=== PATIENT | male | born 1955 | race Caucasian/White ===

== ENCOUNTER → 2022-11-05 | Outpatient (CLI) | payer BC ==
--- NOTE | 2022-11-09 07:39 | MR ---
EXAMINATION TYPE: MR brain wo con DATE OF EXAM: 11/05/2022 COMPARISON: None HISTORY: Optic atrophy, visual defect hemianopsia CONTRAST: Performed utilizing 0 mL intravenous Gadavist gadolinium contrast. TECHNIQUE: Multiplanar, multiecho imaging on a 3.0 Leslie magnet is performed through the brain. Stud y is performed within 24 hours of arrival to the hospital. The craniovertebral junction is normal. The pituitary is normal. Diffusion-weighted imaging is performed. No abnormal hyperintensity is present to suggest an acute i ntracranial infarct or acute ischemic change. There are scattered punctate areas of hyperintensity on T2 and Inversion Recovery weighted sequences which are non-specific but can be related to microvascular ischemic changes. Differential diagnosis s hould include multiple sclerosis, Lyme disease, vasculitis. Ventricles and sulci are appropriate for the patient age. Suspicious fluid adjacent to the optic nerv es is not evident during the brain portion of the study. Fluid is more evident on the dedicated optic MRI. Please see the report same date Minimal maxillary sinus mucosal thickening is present. Some ethmoid air cell mucosal thickening is pr esent. IMPRESSION: 1. Scattered periventricular white matter changes, likely on the basis of chronic white matter ischem ic change. 2. Some increased fluid may be adjacent to the optic nerves on the MRI orbits exam but is less eviden t portion of the exam. Please see MRI orbits report same date.
--- NOTE | 2022-11-09 07:39 | MR ---
EXAMINATION TYPE: MR orbits wo/w con DATE OF EXAM: 11/05/2022 COMPARISON: None HISTORY: Optic atrophy, visual defect hemianopsia CONTRAST: Performed utilizing 10 mL intravenous Gadavist gadolinium contrast. TECHNIQUE: Multiplanar, multiecho imaging on a 3.0 Leslie magnet is performed through the orbits. Stud y is performed within 24 hours of arrival to the hospital. FINDINGS: The globes are symmetrical. Extraocular muscles are normal. Intraconal and extraconal fat is normal. Lacrimal glands are unremarkable. Optic nerves may be somewhat small.. There is fluid adjacent to the optic nerves and T2-weighted sequ ences Optic chiasm as visualized is unremarkable. Pituitary stalk is in the midline. Superior ophthalmic ve ins appear patent. Minimal mucosal thickening may be within the maxillary sinus. Some mild mucosal thickening is through ethmoid air cells. Following contrast, no abnormal enhancement is evident within the field of view. IMPRESSION: 1. There is some fluid adjacent to small optic nerves. Otherwise, no intracranial increased pressure is evident.
== END | disposition home or self-care (01) ==
LOC: RADMRIMAIN 15:51
PROVIDERS: ATTEND Ophthalmology
DX: H47.291 Other optic atrophy, right eye (principal); H53.461 Homonymous bilateral field defects, right side; R90.82 White matter disease, unspecified
CPT/HCPCS: 70543; 70551; A9585